=== PATIENT | male | born 1945 | race American Indian/Alaskan Native ===

== ENCOUNTER 2018-04-19 10:56 | Outpatient (CLI) | payer OTHER ==
--- NOTE | 2018-04-19 15:02 | Ultrasound Report ---
ULTRASOUND RENAL BILATERAL HISTORY: Chronic kidney disease stage III. TECHNIQUE: transabdominal ultrasound with color Doppler interrogation. COMPARISON: none. FINDINGS: The right kidney measures 8.5 x 4.4 x 4.5cm. Right renal cortex: 1.5cm. The left kidney measures 8.6 x 4.1 x 4.5cm. Left renal cortex: 1.9cm. The kidneys are slightly atrophic. There is increased renal parenchymal echotexture bilaterally. Corticomedullary differentiation is preserved. Focal areas of cortical scarring are suspected in the mid and inferior left kidney. This may be secondary to previous episodes of pyelonephritis. No evidence for cystic disease, mass, nephrolithiasis, hydronephrosis or perinephric fluid. The views of the bladder and the region of the ureters appear normal. IMPRESSION: Chronic renal parenchymal disease.
== END 2018-04-19 10:57 | disposition home or self-care (01) ==
LOC: US 10:56
PROVIDERS: ATTEND Internal Medicine Nephrology
DX: I12.9 Hypertensive chronic kidney disease with stage 1 through stage 4 chronic kidney disease, or unspecified chronic kidney disease (principal); N18.3 Chronic kidney disease, stage 3 (moderate); E78.00 Pure hypercholesterolemia, unspecified
CPT/HCPCS: 76770